=== PATIENT | female | born 1995 | race Caucasian/White ===

== ENCOUNTER 2016-11-07 20:54 | Emergency (ER) | payer MEDICAID ==
[~2016-11-07] VITALS: Ht 154.9 cm; Wt 98.0 kg
[~2016-11-07 20:54] MED LIST: FS300 PO; IBUP-1008 PO; MULT-1116 PO
[2016-11-08 01:46] VITALS: BP 128/65
== END 2016-11-08 01:48 | disposition home or self-care (01) ==
LOC: ER 23:25
DX: R05 Cough (principal); J45.909 Unspecified asthma, uncomplicated; Z90.49 Acquired absence of other specified parts of digestive tract; Z98.890 Other specified postprocedural states
CPT/HCPCS: 71010; 81025; 99283

== ENCOUNTER 2017-06-06 12:46 | Emergency (ER) | payer OTHER, MEDICAID ==
[~2017-06-06] VITALS: Ht 162.6 cm; Wt 109.0 kg
[~2017-06-06 12:46] MED LIST changes: +FERR325T23 PO; -FS300 PO
[2017-06-06] MEDS ORDERED: FAMOTIDINE 20MG/2ML VIAL IV STA (18:27)
[2017-06-06] MEDS ORDERED: MAGNESIUM/ALUMINUM HYDROXIDE/SIMETHICONE 30ML UDC PO STA (18:27)
[2017-06-06] MEDS ORDERED: SODIUM CHLORIDE 0.9% 1,000 ML IV ONE ×2 (18:27→20:00)
[2017-06-06] MEDS ORDERED: ONDANSETRON HCL 4MG/2ML VIAL IV STA (18:27)
[2017-06-06 19:05] LABS: BASOPHILS % 0.2 % (0.0-2.0); EOSINOPHILS % 0.1 % (0.0-5.0); HEMATOCRIT. 36.3 % (36.0-48.0); HEMOGLOBIN. 12.1 g/dL (12.0-16.0); LYMPHOCYTES % 15.5 % (20.0-50.0); MEAN CORPUSCULAR HEMOGLOBIN 26.4 pg (28.0-32.0); MEAN CORPUSCULAR VOLUME 79.4 fL (81.0-99.0); MEAN PLATELET VOLUME 9.6 fl (7.4-10.4); MONOCYTES % 8.7 % (2.0-8.0); NEUTROPHILS % 75.5 % (40.0-76.0); PLATELET 236 x1000/uL (130-400); RED BLOOD CELL COUNT 4.58 mill/uL (4.2-5.4); RED CELL DISTRIBUTION WIDTH 13.3 % (11.6-14.6)
[2017-06-06 19:18] LABS: CARBON DIOXIDE 26 mEq/L (21-32); CHLORIDE 104 mEq/L (98-107)
[2017-06-06 19:46] LABS: CLARITY URINE CLEAR (CLEAR); COLOR URINE YELLOW (YELLOW); GLUCOSE URINE NEGATIVE (NEGATIVE); KETONES URINE NEGATIVE (NEGATIVE); LEUKOCYTE ESTERASE URINE NEGATIVE (NEGATIVE); NITRITE URINE NEGATIVE (NEGATIVE); OCCULT BLOOD URINE NEGATIVE (NEGATIVE); PROTEIN URINE NEGATIVE (NEGATIVE)
[2017-06-06 22:33] VITALS: BP 113/57
== END 2017-06-06 22:40 | disposition home or self-care (01) ==
LOC: ER 12:46
DX: K29.70 Gastritis, unspecified, without bleeding (principal); J45.909 Unspecified asthma, uncomplicated; Z90.49 Acquired absence of other specified parts of digestive tract
CPT/HCPCS: 36415; 80053; 81003; 81025; 83690; 85025; 96361; 96374; 96375; 99285; J2405; J3490; J7030

== ENCOUNTER 2017-10-14 10:30 | Emergency (ER) | payer MEDICAID, OTHER ==
[~2017-10-14] VITALS: Ht 154.9 cm; Wt 112.0 kg
[2017-10-14 10:38] VITALS: BP 126/83
[2017-10-14 14:40] LABS: CLARITY URINE CLOUDY (CLEAR); COLOR URINE YELLOW (YELLOW); KETONES URINE NEGATIVE (NEGATIVE); LEUKOCYTE ESTERASE URINE 1+ (NEGATIVE); NITRITE URINE NEGATIVE (NEGATIVE); OCCULT BLOOD URINE NEGATIVE (NEGATIVE); PROTEIN URINE NEGATIVE (NEGATIVE); UROBILINOGEN URINE 0.2 E.U./dL (0.2-1.0)
== END 2017-10-14 14:30 | disposition left against medical advice (07) ==
LOC: ER 10:33
DX: R10.13 Epigastric pain (principal); Z53.21 Procedure and treatment not carried out due to patient leaving prior to being seen by health care provider
CPT/HCPCS: 81003; 81025

== ENCOUNTER 2017-11-08 10:24 | Emergency (ER) | payer MEDICAID ==
[~2017-11-08] VITALS: Ht 157.5 cm; Wt 114.0 kg
[2017-11-08 14:11] LABS: CLARITY URINE CLOUDY (CLEAR); COLOR URINE YELLOW (YELLOW); KETONES URINE NEGATIVE (NEGATIVE); LEUKOCYTE ESTERASE URINE 1+ (NEGATIVE); NITRITE URINE NEGATIVE (NEGATIVE); OCCULT BLOOD URINE NEGATIVE (NEGATIVE); PROTEIN URINE NEGATIVE (NEGATIVE); UROBILINOGEN URINE 0.2 E.U./dL (0.2-1.0)
[2017-11-08] MEDS ORDERED: NITROFURANTOIN 100MG M/M CAPSULE PO ONE (18:00)
[2017-11-08 18:31] LABS: BASOPHILS % 0.3 % (0.0-2.0); EOSINOPHILS % 1.1 % (0.0-5.0); HEMOGLOBIN. 11.1 g/dL (12.0-16.0); LYMPHOCYTES % 25.9 % (20.0-50.0); MEAN CORPUSCULAR HEMOGLOBIN 27.1 pg (28.0-32.0); MEAN CORPUSCULAR VOLUME 80.2 fL (81.0-99.0); MEAN PLATELET VOLUME 9.2 fl (7.4-10.4); MONOCYTES % 7.8 % (2.0-8.0); NEUTROPHILS % 64.9 % (40.0-76.0); PLATELET 261 x1000/uL (130-400); RED BLOOD CELL COUNT 4.12 mill/uL (4.2-5.4); RED CELL DISTRIBUTION WIDTH 13.3 % (11.6-14.6)
[2017-11-08 18:41] LABS: CHLORIDE 105 mEq/L (98-107)
[2017-11-08 18:55] LABS: *AMPHETAMINES SCREEN URINE NEGATIVE (NEGATIVE); *BARBITURATES SCREEN URINE NEGATIVE (NEGATIVE); *BENZODIAZEPINES SCREEN URINE NEGATIVE (NEGATIVE); *COCAINE SCREEN URINE NEGATIVE (NEGATIVE); METHADONE URINE SCREEN NEGATIVE (NEGATIVE); OPIATES URINE SCREEN NEGATIVE (NEGATIVE)
[2017-11-08 18:56] LABS: CANNABINOID URINE SCREEN NEGATIVE (NEGATIVE); PHENCYCLIDINE URINE SCREEN NEGATIVE (NEGATIVE)
[2017-11-08 19:04] LABS: B-HCG QUANTITATIVE 30520 mIU/mL (<3)
[2017-11-09] MEDS ORDERED: NITROFURANTOIN 100MG M/M CAPSULE PO ONE (00:30)
[2017-11-09 00:35] VITALS: BP 120/69
== END 2017-11-09 00:45 | disposition home or self-care (01) ==
LOC: ER 13:28 → CANBEDREQ 23:37 → ER 11-09 00:45
DX: O26.831 Pregnancy related renal disease, first trimester (principal); N17.0 Acute kidney failure with tubular necrosis; O99.281 Endocrine, nutritional and metabolic diseases complicating pregnancy, first trimester; R73.9 Hyperglycemia, unspecified; E86.0 Dehydration; O99.011 Anemia complicating pregnancy, first trimester; E88.09 Other disorders of plasma-protein metabolism, not elsewhere classified; O23.41 Unspecified infection of urinary tract in pregnancy, first trimester; N39.0 Urinary tract infection, site not specified; O21.9 Vomiting of pregnancy, unspecified; D50.9 Iron deficiency anemia, unspecified; O99.511 Diseases of the respiratory system complicating pregnancy, first trimester; J45.909 Unspecified asthma, uncomplicated; O99.211 Obesity complicating pregnancy, first trimester; E66.9 Obesity, unspecified; O26.891 Other specified pregnancy related conditions, first trimester; G62.9 Polyneuropathy, unspecified; Z90.49 Acquired absence of other specified parts of digestive tract; Z98.890 Other specified postprocedural states; Z3A.01 Less than 8 weeks gestation of pregnancy
CPT/HCPCS: 36415; 76801; 80053; 80305; 81003; 81025; 83036; 84702; 85025; 93005; 99285

== ENCOUNTER 2018-03-27 20:23 | Observation (INO) | payer MEDICAID ==
[~2018-03-27] VITALS: Ht 157.5 cm; Wt 109.8 kg
[2018-03-27] MEDS ORDERED: PREN-55 PO (21:36)
== END 2018-03-27 21:50 | disposition home or self-care (01) ==
LOC: L&D 20:23
PROVIDERS: ADMIT Obstetrics & Gynecology; ATTEND Obstetrics & Gynecology
DX: O99.89 Other specified diseases and conditions complicating pregnancy, childbirth and the puerperium (principal); M54.5 Low back pain; O12.02 Gestational edema, second trimester; Z3A.27 27 weeks gestation of pregnancy
CPT/HCPCS: G0378

== ENCOUNTER 2018-04-02 08:33 | Emergency (ER) | payer MEDICAID, OTHER ==
[~2018-04-02] VITALS: Ht 157.5 cm; Wt 122.0 kg
[~2018-04-02 08:33] MED LIST changes: -FERR325T23 PO; -IBUP-1008 PO; -MULT-1116 PO; +PREN-55 PO
[2018-04-02 11:29] LABS: BASOPHILS % 0.1 % (0.0-2.0); EOSINOPHILS % 0.8 % (0.0-5.0); HEMATOCRIT. 31.6 % (36.0-48.0); HEMOGLOBIN. 10.7 g/dL (12.0-16.0); LYMPHOCYTES % 24.5 % (20.0-50.0); MEAN CORPUSCULAR HEMOGLOBIN 27.9 pg (28.0-32.0); MEAN CORPUSCULAR VOLUME 82.6 fL (81.0-99.0); MEAN PLATELET VOLUME 9.5 fl (7.4-10.4); NEUTROPHILS % 68.6 % (40.0-76.0); PLATELET 217 x1000/uL (130-400); RED BLOOD CELL COUNT 3.83 mill/uL (4.2-5.4); RED CELL DISTRIBUTION WIDTH 13.2 % (11.6-14.6)
[2018-04-02 11:39] LABS: CHLORIDE 107 mEq/L (98-107)
[2018-04-02 12:25] LABS: CLARITY URINE TURBID (CLEAR); COLOR URINE DARK YELLOW (YELLOW); KETONES URINE NEGATIVE (NEGATIVE); LEUKOCYTE ESTERASE URINE 2+ (NEGATIVE); NITRITE URINE NEGATIVE (NEGATIVE); OCCULT BLOOD URINE 2+ (NEGATIVE); PH URINE 5.5 (4.5-8.0); PROTEIN URINE TRACE (NEGATIVE); SPECIFIC GRAVITY URINE 1.026 (1.005-1.030)
[2018-04-02 12:40] VITALS: BP 120/74
== END 2018-04-02 12:48 | disposition home or self-care (01) ==
LOC: ER 08:33
DX: O23.42 Unspecified infection of urinary tract in pregnancy, second trimester (principal); R60.0 Localized edema; O26.892 Other specified pregnancy related conditions, second trimester; O99.012 Anemia complicating pregnancy, second trimester; J45.909 Unspecified asthma, uncomplicated; Z3A.24 24 weeks gestation of pregnancy; Z90.49 Acquired absence of other specified parts of digestive tract; Z98.890 Other specified postprocedural states
CPT/HCPCS: 36415; 80053; 81003; 85025; 87086; 93971; 99285; Z7610

== ENCOUNTER 2018-04-24 04:02 | Observation (INO) | payer OTHER ==
[~2018-04-24] VITALS: Ht 154.9 cm; Wt 108.9 kg
[2018-04-24 05:37] LABS: CLARITY URINE TURBID (CLEAR); COLOR URINE YELLOW (YELLOW); KETONES URINE NEGATIVE (NEGATIVE); LEUKOCYTE ESTERASE URINE 2+ (NEGATIVE); NITRITE URINE NEGATIVE (NEGATIVE); OCCULT BLOOD URINE NEGATIVE (NEGATIVE); PH URINE 5.5 (4.5-8.0); PROTEIN URINE NEGATIVE (NEGATIVE); SPECIFIC GRAVITY URINE 1.025 (1.005-1.030)
[2018-04-24] MEDS ORDERED: LACTATED RINGERS 1,000 ML IV SCH (06:30)
[2018-04-24] MEDS ORDERED: ACETAMINOPHEN 500MG TABLET PO ONE ×2 (06:30→06:45)
[2018-04-24] MEDS ORDERED: CEFAZOLIN 2000MG in DEXTROSE 5% WATER 100ML IV NR (06:30)
[2018-04-24] MEDS ORDERED: CEFAZOLIN SODIUM 1000MG/VIAL IV ONE (06:30)
[2018-04-24] MEDS ORDERED: NITROFURANTOIN 100MG M/M CAPSULE PO ONE (10:00)
[2018-04-24 10:06] LABS: BASOPHILS % 0.2 % (0.0-2.0); HEMATOCRIT. 32.6 % (36.0-48.0); HEMOGLOBIN. 10.9 g/dL (12.0-16.0); LYMPHOCYTES % 25.1 % (20.0-50.0); MEAN CORPUSCULAR HEMOGLOBIN 28.3 pg (28.0-32.0); MEAN CORPUSCULAR VOLUME 84.2 fL (81.0-99.0); MEAN PLATELET VOLUME 10.1 fl (7.4-10.4); MONOCYTES % 5.7 % (2.0-8.0); PLATELET 225 x1000/uL (130-400); RED BLOOD CELL COUNT 3.86 mill/uL (4.2-5.4); RED CELL DISTRIBUTION WIDTH 12.9 % (11.6-14.6)
== END 2018-04-24 10:40 | disposition home or self-care (01) ==
LOC: L&D 04:02
PROVIDERS: ADMIT Obstetrics & Gynecology; ATTEND Obstetrics & Gynecology
DX: O26.893 Other specified pregnancy related conditions, third trimester (principal); R10.30 Lower abdominal pain, unspecified; Z3A.31 31 weeks gestation of pregnancy
CPT/HCPCS: 36415; 76770; 76805; 76818; 81003; 85025; 87086; G0378; J0690; J7120; J7060

== ENCOUNTER 2018-05-29 12:24 | Observation (INO) | payer MEDICAID ==
[~2018-05-29] VITALS: Ht 154.9 cm; Wt 108.9 kg
[2018-05-29] MEDS ORDERED: ONDANSETRON HCL 4MG/2ML INJ IV NR (13:15)
[2018-05-29] MEDS ORDERED: ACETAMINOPHEN 500MG TABLET PO NR (13:15)
[2018-05-29] MEDS ORDERED: DEXT 5%/LACTATED RINGERS 1,000 ML IV SCH (13:15)
[2018-05-29 14:14] LABS: CHLORIDE 106 mEq/L (98-107)
[2018-05-30] MEDS ORDERED: DEXT 5%/LR + PITOCIN 20UNITS/L 0 ML IV ONE (07:31)
== END 2018-05-29 16:26 | disposition home or self-care (01) ==
LOC: L&D 12:24
PROVIDERS: ADMIT Obstetrics & Gynecology; ATTEND Obstetrics & Gynecology
DX: O21.2 Late vomiting of pregnancy (principal); O26.893 Other specified pregnancy related conditions, third trimester; R19.7 Diarrhea, unspecified; R10.9 Unspecified abdominal pain; Z3A.36 36 weeks gestation of pregnancy
CPT/HCPCS: 36415; 80053; 96374; 99281; G0378; J2405; J7120; 96360; 96361; J2590; J7121

== ENCOUNTER 2018-06-16 06:15 | Inpatient (IN) | payer MEDICAID ==
[~2018-06-16] VITALS: Ht 154.9 cm; Wt 108.9 kg
[2018-06-16] MEDS ORDERED: LACTATED RINGERS 1,000 ML IV SCH (07:20)
[2018-06-16] MEDS ORDERED: DEXT 5%/LR + PITOCIN 20UNITS/L 1,000 ML IV SCH ×2 (07:20→18:13)
[2018-06-16] MEDS ORDERED: NALOXONE HCL 0.4 MG/ML 1ML VIAL IM PRN (07:30)
[2018-06-16] MEDS ORDERED: METHYLERGONOVINE MALEATE 0.2 MG/ML IM PRN (07:30)
[2018-06-16] MEDS ORDERED: CARBOPROST TROMETHAMINE 250 MCG/ML AMPUL IM PRN (07:30)
[2018-06-16 08:40] LABS: BASOPHILS % 0.4 % (0.0-2.0); EOSINOPHILS % 0.5 % (0.0-5.0); HEMATOCRIT. 33.5 % (36.0-48.0); HEMOGLOBIN. 11.4 g/dL (12.0-16.0); LYMPHOCYTES % 24.7 % (20.0-50.0); MEAN CORPUSCULAR HEMOGLOBIN 28.2 pg (28.0-32.0); MEAN CORPUSCULAR VOLUME 82.7 fL (81.0-99.0); MEAN PLATELET VOLUME 10.4 fl (7.4-10.4); MONOCYTES % 6.1 % (2.0-8.0); NEUTROPHILS % 68.3 % (40.0-76.0); PLATELET 223 x1000/uL (130-400); RED BLOOD CELL COUNT 4.06 mill/uL (4.2-5.4); RED CELL DISTRIBUTION WIDTH 12.5 % (11.6-14.6)
[2018-06-16 08:43] LABS: CLARITY URINE CLOUDY (CLEAR); COLOR URINE YELLOW (YELLOW); KETONES URINE NEGATIVE (NEGATIVE); LEUKOCYTE ESTERASE URINE 2+ (NEGATIVE); NITRITE URINE NEGATIVE (NEGATIVE); OCCULT BLOOD URINE NEGATIVE (NEGATIVE); PROTEIN URINE NEGATIVE (NEGATIVE); UROBILINOGEN URINE 0.2 E.U./dL (0.2-1.0)
[2018-06-16 09:06] LABS: INR 0.9; PARTIAL THROMBOPLASTIN TIME 27.5 sec (23.4-31.0); PROTHROMBIN TIME 9.4 sec (9.1-11.1)
[2018-06-16 09:53] LABS: METHADONE URINE SCREEN NEGATIVE (NEGATIVE); OPIATES URINE SCREEN NEGATIVE (NEGATIVE)
[2018-06-16 10:04] LABS: *AMPHETAMINES SCREEN URINE NEGATIVE (NEGATIVE); *BARBITURATES SCREEN URINE NEGATIVE (NEGATIVE); *BENZODIAZEPINES SCREEN URINE NEGATIVE (NEGATIVE); *COCAINE SCREEN URINE NEGATIVE (NEGATIVE); CANNABINOID URINE SCREEN NEGATIVE (NEGATIVE); PHENCYCLIDINE URINE SCREEN NEGATIVE (NEGATIVE)
[2018-06-16 11:08] LABS: HEPATITIS B SURFACE ANTIGEN NEGATIVE
[2018-06-16] MEDS ORDERED: MORPHINE SULFATE/PF 1MG/ML 10ML AMP ONE (17:12)
[2018-06-16] MEDS ORDERED: FENTANYL CITRATE/PF 50MCG/ML 2ML VIAL ONE (17:12)
[2018-06-16] MEDS ORDERED: ONDANSETRON HCL 4MG/2ML INJ ONE (17:17)
[2018-06-16] MEDS ORDERED: CEFAZOLIN SODIUM 1000MG/VIAL ONE (17:17)
[2018-06-16] MEDS ORDERED: IBUPROFEN 400MG TABLET PO PRN (18:15)
[2018-06-16] MEDS ORDERED: ACETAMINOPHEN WITH CODEINE 300/30MG TABLET PO PRN (18:15)
[2018-06-16] MEDS ORDERED: HYDROMORPHONE HCL/PF 2MG/ML CPJ IM PRN (18:15)
[2018-06-16] MEDS ORDERED: RHO(D) IMMUNE GLOBULIN 300 MCG/SYR IM PRN (18:15)
[2018-06-16 21:00] VITALS: BP 113/58
[2018-06-16 21:30] VITALS: BP 104/61
[2018-06-16 22:00] VITALS: BP 101/59
[2018-06-16] MEDS ORDERED: DIPHENHYDRAMINE 50MG/ML VIAL IV PRN (22:15)
[2018-06-16] MEDS ORDERED: ONDANSETRON HCL 4MG/2ML INJ IV PRN (22:15)
[2018-06-16] MEDS ORDERED: BUTORPHANOL TARTRATE 2 MG/ML VIAL IV PRN (22:15)
[2018-06-16] MEDS ORDERED: NALOXONE HCL 0.4 MG/ML 1ML VIAL IV PRN (22:15)
[2018-06-16] MEDS ORDERED: KETOROLAC 30MG/ML VIAL IV PRN (22:15)
[2018-06-17] VITALS: BP 106/60
[2018-06-17 04:00] VITALS: BP 110/55
[2018-06-17 07:44] LABS: BASOPHILS % 0.2 % (0.0-2.0); EOSINOPHILS % 0.5 % (0.0-5.0); HEMOGLOBIN. 10.2 g/dL (12.0-16.0); LYMPHOCYTES % 22.2 % (20.0-50.0); MEAN CORPUSCULAR HEMOGLOBIN 28.2 pg (28.0-32.0); MEAN CORPUSCULAR VOLUME 83.1 fL (81.0-99.0); MEAN PLATELET VOLUME 10.3 fl (7.4-10.4); MONOCYTES % 7.2 % (2.0-8.0); NEUTROPHILS % 69.9 % (40.0-76.0); PLATELET 185 x1000/uL (130-400); RED BLOOD CELL COUNT 3.61 mill/uL (4.2-5.4); RED CELL DISTRIBUTION WIDTH 12.1 % (11.6-14.6)
[2018-06-17 08:30] VITALS: BP 106/58
[2018-06-17 11:15] VITALS: BP 102/63
[2018-06-17 14:55] VITALS: BP 104/66
[2018-06-17] MEDS: IBUPROFEN 800MG TABLET PO PRN (18:36)
[2018-06-17 22:00] VITALS: BP 99/55
[2018-06-18] MEDS: IBUPROFEN 800MG TABLET PO PRN (03:32)
[2018-06-18 06:00] VITALS: BP 104/63
[2018-06-18 07:58] VITALS: BP 116/81
[2018-06-18 12:57] VITALS: BP 116/81
[2018-06-18] MEDS ORDERED: GUAIFENESIN-DM 200MG-20MG/10ML UDC PO PRN (13:00)
== END 2018-06-18 17:30 | disposition home or self-care (01) | DRG 540 ==
LOC: L&D 06:15 → OBSVTOIN 06:15 → L&D 08:29 → 7EST PP/OB 20:59
PROVIDERS: ADMIT Obstetrics & Gynecology; ATTEND Obstetrics & Gynecology
PROC: 10D00Z1 Extraction of Products of Conception, Low, Open Approach (ICD-10-PCS; principal; 2018-06-16 18:25)
DX: O34.211 Maternal care for low transverse scar from previous cesarean delivery (principal); Z68.42 Body mass index [BMI] 45.0-49.9, adult; O99.214 Obesity complicating childbirth; D64.9 Anemia, unspecified; E66.9 Obesity, unspecified; O99.02 Anemia complicating childbirth; O99.52 Diseases of the respiratory system complicating childbirth; J45.909 Unspecified asthma, uncomplicated; Z37.0 Single live birth; Z3A.38 38 weeks gestation of pregnancy
CPT/HCPCS: 36415; 80305; 86592; 86703; 86762; 86850; 86900; 87340; 88307; G0378; J0690; J2274; J2405; J2590; J3010; J7120; A4315

== ENCOUNTER 2019-08-06 04:05 | Emergency (ER) | payer MEDICAID ==
[2019-08-06 11:07] LABS: CLARITY URINE TURBID (CLEAR); COLOR URINE RED (YELLOW); KETONES URINE NEGATIVE (NEGATIVE); LEUKOCYTE ESTERASE URINE 2+ (NEGATIVE); NITRITE URINE NEGATIVE (NEGATIVE); OCCULT BLOOD URINE 3+ (NEGATIVE); PROTEIN URINE 3+ (NEGATIVE); SPECIFIC GRAVITY URINE 1.023 (1.005-1.030); UROBILINOGEN URINE 0.2 E.U./dL (0.2-1.0)
[2019-08-06 11:22] LABS: HEMATOCRIT 31.5 % (36.0-48.0); HEMOGLOBIN 10.5 g/dL (12.0-16.0); MEAN CORPUSCULAR HEMOGLOBIN 26.4 pg (28.0-32.0); MEAN CORPUSCULAR VOLUME 79.6 fL (81.0-99.0); PLATELET 269 x1000/uL (130-400); RED BLOOD CELL COUNT 3.96 mill/uL (4.2-5.4); RED CELL DISTRIBUTION WIDTH 14.4 % (11.6-14.6)
[2019-08-06 11:44] LABS: HCG SCREEN POSITIVE
[2019-08-06] MEDS ORDERED: CEFTRIAXONE SODIUM 1 G/VIAL IM SCH (11:45)
[2019-08-06] MEDS ORDERED: LIDOCAINE HCL 1% 20ML VIAL (Pyxis) INJ INFIL ONE (12:15)
[2019-08-06 13:16] VITALS: BP 121/59
== END 2019-08-06 13:20 | disposition home or self-care (01) ==
LOC: ER 04:05
DX: O23.41 Unspecified infection of urinary tract in pregnancy, first trimester (principal); O99.511 Diseases of the respiratory system complicating pregnancy, first trimester; J45.909 Unspecified asthma, uncomplicated; Z90.49 Acquired absence of other specified parts of digestive tract; Z3A.08 8 weeks gestation of pregnancy
CPT/HCPCS: 36415; 76801; 76817; 81003; 84703; 85027; 86850; 86900; 86901; 96372; 99284; J0696; J3490

== ENCOUNTER 2019-08-26 11:51 | Emergency (ER) | payer MEDICAID ==
[~2019-08-26] VITALS: Ht 154.9 cm; Wt 114.0 kg
[2019-08-26] MEDS ORDERED: ONDANSETRON HCL 4MG/2ML INJ IV STA (21:46)
[2019-08-26] MEDS ORDERED: SODIUM CHLORIDE 0.9% 1,000 ML IV ONE (21:46)
[2019-08-26 23:10] LABS: BASOPHILS % 1.4 % (0.0-2.0); HEMATOCRIT. 33.7 % (36.0-48.0); HEMOGLOBIN. 11.3 g/dL (12.0-16.0); LYMPHOCYTES % 29.9 % (20.0-50.0); MEAN CORPUSCULAR HEMOGLOBIN 26.8 pg (28.0-32.0); MEAN PLATELET VOLUME 10.2 fl (7.4-10.4); MONOCYTES % 7.3 % (2.0-8.0); NEUTROPHILS % 59.4 % (40.0-76.0); PLATELET 291 x1000/uL (130-400); RED BLOOD CELL COUNT 4.21 mill/uL (4.2-5.4)
[2019-08-26 23:15] LABS: CHLORIDE 105 mEq/L (98-107); PROTHROMBIN TIME 9.9 sec (9.6-11.0)
[2019-08-26 23:32] LABS: CLARITY URINE TURBID (CLEAR); COLOR URINE YELLOW (YELLOW); KETONES URINE NEGATIVE (NEGATIVE); LEUKOCYTE ESTERASE URINE 1+ (NEGATIVE); NITRITE URINE NEGATIVE (NEGATIVE); OCCULT BLOOD URINE NEGATIVE (NEGATIVE); PH URINE 5.5 (4.5-8.0); PROTEIN URINE TRACE (NEGATIVE); SPECIFIC GRAVITY URINE 1.037 (1.005-1.030)
[2019-08-26 23:42] LABS: B-HCG QUANTITATIVE 48011 mIU/mL (<3)
[2019-08-27] MEDS ORDERED: CEFTRIAXONE 1 G PREMIX 50 ML IV ONE (00:30)
[2019-08-27 02:11] VITALS: BP 111/71
== END 2019-08-27 02:11 | disposition home or self-care (01) ==
LOC: ER 11:51
DX: O23.11 Infections of bladder in pregnancy, first trimester (principal); K29.00 Acute gastritis without bleeding; D64.9 Anemia, unspecified; J45.909 Unspecified asthma, uncomplicated; Z90.49 Acquired absence of other specified parts of digestive tract; Z98.890 Other specified postprocedural states; Z3A.11 11 weeks gestation of pregnancy; Z87.19 Personal history of other diseases of the digestive system
CPT/HCPCS: 36415; 76705; 76801; 80053; 81003; 83690; 84702; 85025; 85610; 86850; 86900; 86901; 87086; 96361; 96365; 96375; 99284; J0696; J2405; J7030; Z7610

== ENCOUNTER 2019-10-17 20:06 | Emergency (ER) | payer MEDICAID ==
[~2019-10-17] VITALS: Ht 154.9 cm; Wt 111.0 kg
[2019-10-17] MEDS ORDERED: ONDANSETRON HCL 4MG/2ML INJ IV STA (22:21)
[2019-10-17] MEDS ORDERED: SODIUM CHLORIDE 0.9% 1,000 ML IV ONE (22:21)
[2019-10-17] MEDS ORDERED: ACETAMINOPHEN 325MG TABLET PO STA (22:21)
[2019-10-17 22:58] LABS: BASOPHILS % 0.2 % (0.0-2.0); HEMATOCRIT. 30.5 % (36.0-48.0); HEMOGLOBIN. 10.3 g/dL (12.0-16.0); LYMPHOCYTES % 27.8 % (20.0-50.0); MEAN CORPUSCULAR HEMOGLOBIN 27.6 pg (28.0-32.0); MEAN CORPUSCULAR VOLUME 81.4 fL (81.0-99.0); MEAN PLATELET VOLUME 9.5 fl (7.4-10.4); MONOCYTES % 7.3 % (2.0-8.0); NEUTROPHILS % 63.7 % (40.0-76.0); PLATELET 225 x1000/uL (130-400); RED BLOOD CELL COUNT 3.74 mill/uL (4.2-5.4); RED CELL DISTRIBUTION WIDTH 13.9 % (11.6-14.6)
[2019-10-17 23:05] LABS: CHLORIDE 106 mEq/L (98-107)
[2019-10-18 00:11] VITALS: BP 117/53
== END 2019-10-18 00:13 | disposition home or self-care (01) ==
LOC: ER 20:06
DX: O26.892 Other specified pregnancy related conditions, second trimester (principal); O99.512 Diseases of the respiratory system complicating pregnancy, second trimester; R10.13 Epigastric pain; Z3A.18 18 weeks gestation of pregnancy; Z87.440 Personal history of urinary (tract) infections; Z98.890 Other specified postprocedural states; Z90.49 Acquired absence of other specified parts of digestive tract
CPT/HCPCS: 36415; 80053; 83690; 85025; 96361; 96374; 99283; J2405; J7030

== ENCOUNTER 2019-12-12 15:19 | Observation (INO) | payer MEDICAID ==
[~2019-12-12] VITALS: Ht 154.9 cm; Wt 104.3 kg
[2019-12-12 17:14] LABS: CLARITY URINE CLOUDY (CLEAR); COLOR URINE DARK YELLOW (YELLOW); KETONES URINE TRACE (NEGATIVE); LEUKOCYTE ESTERASE URINE 1+ (NEGATIVE); NITRITE URINE NEGATIVE (NEGATIVE); OCCULT BLOOD URINE NEGATIVE (NEGATIVE); PROTEIN URINE TRACE (NEGATIVE)
[2019-12-12] MEDS ORDERED: CEFAZOLIN 2,000 MG in DEXT 5% WATER 100 ML IV SCH (18:00)
== END 2019-12-12 19:03 | disposition home or self-care (01) ==
LOC: 8 EST LDRP 15:19
PROVIDERS: ADMIT Obstetrics & Gynecology; ATTEND Obstetrics & Gynecology
DX: O42.912 Preterm premature rupture of membranes, unspecified as to length of time between rupture and onset of labor, second trimester (principal); O26.892 Other specified pregnancy related conditions, second trimester; R10.9 Unspecified abdominal pain; Z3A.26 26 weeks gestation of pregnancy
CPT/HCPCS: 76805; 76818; 76830; 81003; 96365; 99281; G0378; J0690; J7060; 96360

== ENCOUNTER 2020-01-27 06:37 | Observation (INO) | payer MEDICAID ==
[~2020-01-27] VITALS: Ht 154.9 cm; Wt 96.2 kg
[2020-01-27] MEDS ORDERED: LACTATED RINGERS 1,000 ML IV SCH (08:15)
[2020-01-27 08:30] LABS: CLARITY URINE CLEAR (CLEAR); COLOR URINE YELLOW (YELLOW); KETONES URINE NEGATIVE (NEGATIVE); LEUKOCYTE ESTERASE URINE TRACE (NEGATIVE); NITRITE URINE NEGATIVE (NEGATIVE); OCCULT BLOOD URINE NEGATIVE (NEGATIVE); PH URINE 6.5 (4.5-8.0); PROTEIN URINE NEGATIVE (NEGATIVE); SPECIFIC GRAVITY URINE 1.006 (1.005-1.030); UROBILINOGEN URINE 0.2 E.U./dL (0.2-1.0)
[2020-01-27] MEDS ORDERED: CEFAZOLIN 2,000 MG in DEXT 5% WATER 100 ML IV SCH (10:30)
== END 2020-01-27 11:30 | disposition home or self-care (01) ==
LOC: 8 EST LDRP 06:37
PROVIDERS: ADMIT Obstetrics & Gynecology; ATTEND Obstetrics & Gynecology
DX: O62.9 Abnormality of forces of labor, unspecified (principal); O26.893 Other specified pregnancy related conditions, third trimester; R10.2 Pelvic and perineal pain; Z3A.32 32 weeks gestation of pregnancy
CPT/HCPCS: 76805; 76818; 81003; 96361; 96365; 99281; G0378; J0690; J7060; 96360

== ENCOUNTER 2020-02-07 23:28 | Observation (INO) | payer MEDICAID ==
[~2020-02-07] VITALS: Ht 154.9 cm; Wt 109.0 kg
[2020-02-07 23:36] VITALS: BP 138/84
[2020-02-08 02:49] LABS: BASOPHILS % 0.2 % (0.0-2.0); EOSINOPHILS % 0.4 % (0.0-5.0); HEMOGLOBIN. 9.9 g/dL (12.0-16.0); LYMPHOCYTES % 27.2 % (20.0-50.0); MEAN CORPUSCULAR HEMOGLOBIN 26.6 pg (28.0-32.0); MEAN CORPUSCULAR VOLUME 80.4 fL (81.0-99.0); MEAN PLATELET VOLUME 10.4 fl (7.4-10.4); MONOCYTES % 6.7 % (2.0-8.0); NEUTROPHILS % 65.5 % (40.0-76.0); PLATELET 193 x1000/uL (130-400); RED BLOOD CELL COUNT 3.73 mill/uL (4.2-5.4)
[2020-02-08] MEDS ORDERED: PREN-176 PO (02:49)
[2020-02-08] MEDS ORDERED: FERR325T6 PO (02:49)
[2020-02-08] MEDS ORDERED: FOLIC ACID (02:49)
[2020-02-08 02:54] LABS: CHLORIDE 107 mEq/L (98-107)
[2020-02-08 03:08] LABS: INR 0.9; PARTIAL THROMBOPLASTIN TIME 30.3 sec (23.4-31.0); PROTHROMBIN TIME 9.6 sec (9.6-11.0)
[2020-02-08 03:27] LABS: CLARITY URINE CLEAR (CLEAR); COLOR URINE YELLOW (YELLOW); KETONES URINE NEGATIVE (NEGATIVE); LEUKOCYTE ESTERASE URINE 1+ (NEGATIVE); NITRITE URINE NEGATIVE (NEGATIVE); OCCULT BLOOD URINE NEGATIVE (NEGATIVE); PH URINE 5.5 (4.5-8.0); PROTEIN URINE NEGATIVE (NEGATIVE); SPECIFIC GRAVITY URINE 1.019 (1.005-1.030); UROBILINOGEN URINE 0.2 E.U./dL (0.2-1.0)
== END 2020-02-08 05:30 | disposition home or self-care (01) ==
LOC: ER 23:28 → L&D 02-08 01:43
PROVIDERS: ADMIT Obstetrics & Gynecology; ATTEND Obstetrics & Gynecology
DX: U07.1 COVID-19 (principal); O99.513 Diseases of the respiratory system complicating pregnancy, third trimester; J45.909 Unspecified asthma, uncomplicated; R43.9 Unspecified disturbances of smell and taste; R06.02 Shortness of breath; R05 Cough; O26.893 Other specified pregnancy related conditions, third trimester; R10.30 Lower abdominal pain, unspecified; Z3A.37 37 weeks gestation of pregnancy; Z98.891 History of uterine scar from previous surgery
CPT/HCPCS: 36415; 76805; 76818; 80053; 81003; 84550; 85025; 85384; 85610; 85730; 86850; 86900; 86901; 87040; 87086; 93005; 99281; G0378; U0003; 99285

== ENCOUNTER 2020-02-24 19:24 | Emergency (ER) | payer MEDICAID, OTHER ==
[~2020-02-24] VITALS: Ht 154.9 cm; Wt 111.0 kg
[2020-02-24 19:30] VITALS: BP 120/76
== END 2020-02-24 19:56 | disposition home or self-care (01) ==
LOC: ER 19:24
DX: O98.513 Other viral diseases complicating pregnancy, third trimester (principal); U07.1 COVID-19; O99.213 Obesity complicating pregnancy, third trimester; O26.893 Other specified pregnancy related conditions, third trimester; J45.909 Unspecified asthma, uncomplicated; Z3A.38 38 weeks gestation of pregnancy; Z98.890 Other specified postprocedural states
CPT/HCPCS: 99283; C9803; U0003

== ENCOUNTER 2020-02-26 08:54 | Observation (INO) | payer OTHER ==
[2020-02-26] MEDS ORDERED: METOCLOPRAMIDE HCL 10MG/2ML VIAL ONE (09:09)
[2020-02-26] MEDS ORDERED: MORPHINE SULFATE/PF 1MG/ML 10ML AMP ONE (09:09)
[2020-02-26] MEDS ORDERED: CEFAZOLIN SODIUM 1000MG/VIAL ONE (09:09)
[2020-02-26] MEDS ORDERED: EPHEDRINE SULFATE 50MG/ML VIAL ONE (09:09)
[2020-02-26] MEDS ORDERED: FENTANYL CITRATE/PF 50MCG/ML 2ML VIAL ONE (09:09)
[2020-02-26] MEDS ORDERED: GLYCOPYRROLATE 0.2 MG/ML 2ML VIAL ONE (09:09)
[2020-02-26] MEDS ORDERED: PHENYLEPHRINE HCL 10 MG/ML 1ML (IV VIAL) IV ONE (09:09)
[2020-02-26] MEDS ORDERED: OXYTOCIN 10 UNITS/ML 1ML ONE (09:09)
[2020-02-26] MEDS ORDERED: ONDANSETRON HCL 4MG/2ML INJ ONE (09:09)
[2020-02-26] MEDS ORDERED: DIPHENHYDRAMINE 50MG/ML VIAL ONE (09:10)
[2020-02-26] MEDS ORDERED: KETOROLAC 60MG/2ML VIAL IM ONE (09:10)
[2020-02-26] MEDS ORDERED: SODIUM CHLORIDE 0.9% 10ML VIAL ONE (09:22)
[2020-02-26] MEDS ORDERED: CITRIC ACID/SODIUM CITRATE SOLN 30ML UDC PO NR (10:00)
[2020-02-26] MEDS ORDERED: LACTATED RINGERS 1,000 ML IV SCH (11:15)
== END 2020-02-26 12:15 | disposition home or self-care (01) ==
LOC: ER 08:54 → L&D 09:16
PROVIDERS: ADMIT Obstetrics & Gynecology; ATTEND Obstetrics & Gynecology
DX: O98.513 Other viral diseases complicating pregnancy, third trimester (principal); U07.1 COVID-19; O82 Encounter for cesarean delivery without indication; O62.9 Abnormality of forces of labor, unspecified; Z3A.37 37 weeks gestation of pregnancy
CPT/HCPCS: 59025; 96360; 99281; G0378; J2370; J2405; J3490; J0690; J1200; J1885; J2274; J2765; J3010

== ENCOUNTER 2020-03-03 23:36 | Inpatient (IN) | payer MEDICAID, OTHER ==
[~2020-03-03] VITALS: Ht 154.9 cm; Wt 112.0 kg
[2020-03-04] MEDS ORDERED: PNV1TABL76 PO (00:54)
[2020-03-04] MEDS ORDERED: FERR325T6 PO (00:54)
[2020-03-04] MEDS ORDERED: DEXT 5%/LR + PITOCIN 20UNITS/L 1,000 ML IV SCH ×2 (01:02→07:56)
[2020-03-04] MEDS ORDERED: NALOXONE HCL 0.4 MG/ML 1ML VIAL IM PRN (01:15)
[2020-03-04] MEDS ORDERED: METHYLERGONOVINE MALEATE 0.2 MG/ML IM PRN (01:15)
[2020-03-04] MEDS: LACTATED RINGERS 1,000 ML IV SCH ×2 (01:35→03:17)
[2020-03-04 02:12] LABS: BASOPHILS % 0.3 % (0.0-2.0); EOSINOPHILS % 0.3 % (0.0-5.0); HEMATOCRIT. 30.2 % (36.0-48.0); HEMOGLOBIN. 10.1 g/dL (12.0-16.0); LYMPHOCYTES % 29.5 % (20.0-50.0); MEAN CORPUSCULAR HEMOGLOBIN 26.7 pg (28.0-32.0); MEAN CORPUSCULAR VOLUME 80.1 fL (81.0-99.0); MEAN PLATELET VOLUME 10.9 fl (7.4-10.4); MONOCYTES % 6.5 % (2.0-8.0); NEUTROPHILS % 63.4 % (40.0-76.0); PLATELET 187 x1000/uL (130-400); RED BLOOD CELL COUNT 3.77 mill/uL (4.2-5.4); RED CELL DISTRIBUTION WIDTH 14.5 % (11.6-14.6)
[2020-03-04 02:13] LABS: CLARITY URINE CLEAR (CLEAR); COLOR URINE YELLOW (YELLOW); KETONES URINE NEGATIVE (NEGATIVE); LEUKOCYTE ESTERASE URINE 2+ (NEGATIVE); NITRITE URINE NEGATIVE (NEGATIVE); OCCULT BLOOD URINE NEGATIVE (NEGATIVE); PH URINE 5.5 (4.5-8.0); PROTEIN URINE TRACE (NEGATIVE); UROBILINOGEN URINE 0.2 E.U./dL (0.2-1.0)
[2020-03-04 02:23] LABS: INR 0.9; PARTIAL THROMBOPLASTIN TIME 25.7 sec (23.4-31.0); PROTHROMBIN TIME 9.6 sec (9.6-11.0)
[2020-03-04 02:23] LABS: *AMPHETAMINES SCREEN URINE NEGATIVE (NEGATIVE); *BARBITURATES SCREEN URINE NEGATIVE (NEGATIVE); *BENZODIAZEPINES SCREEN URINE NEGATIVE (NEGATIVE); *COCAINE SCREEN URINE NEGATIVE (NEGATIVE); METHADONE URINE SCREEN NEGATIVE (NEGATIVE); OPIATES URINE SCREEN NEGATIVE (NEGATIVE)
[2020-03-04 02:24] LABS: CANNABINOID URINE SCREEN NEGATIVE (NEGATIVE); PHENCYCLIDINE URINE SCREEN NEGATIVE (NEGATIVE)
[2020-03-04 03:55] LABS: HEPATITIS B SURFACE ANTIGEN NEGATIVE
[2020-03-04] MEDS ORDERED: MORPHINE SULFATE/PF 1MG/ML 10ML AMP ONE (05:10)
[2020-03-04] MEDS ORDERED: KETOROLAC 60MG/2ML VIAL IM ONE (05:10)
[2020-03-04] MEDS ORDERED: ONDANSETRON HCL 4MG/2ML INJ ONE (05:10)
[2020-03-04] MEDS ORDERED: CEFAZOLIN SODIUM 1000MG/VIAL ONE (05:10)
[2020-03-04] MEDS ORDERED: OXYTOCIN 10 UNITS/ML 1ML ONE (05:10)
[2020-03-04] MEDS ORDERED: GLYCOPYRROLATE 0.2 MG/ML 2ML VIAL ONE (05:10)
[2020-03-04] MEDS ORDERED: DIPHENHYDRAMINE 50MG/ML VIAL ONE (05:10)
[2020-03-04] MEDS ORDERED: PHENYLEPHRINE HCL 10 MG/ML 1ML (IV VIAL) IV ONE (05:10)
[2020-03-04] MEDS ORDERED: FENTANYL CITRATE/PF 50MCG/ML 5ML VIAL ONE (05:10)
[2020-03-04] MEDS ORDERED: EPHEDRINE SULFATE 50MG/ML VIAL ONE (05:10)
[2020-03-04] MEDS ORDERED: CITRIC ACID/SODIUM CITRATE SOLN 30ML UDC PO NR (05:30)
[2020-03-04] MEDS: KETOROLAC 30MG/ML VIAL IV SCH ×2 (07:02→20:55)
[2020-03-04] MEDS ORDERED: BISACODYL 10MG SUPP PR PRN (08:00)
[2020-03-04] MEDS ORDERED: IBUPROFEN 400MG TABLET PO PRN (08:00)
[2020-03-04] MEDS ORDERED: KETOROLAC 30MG/ML VIAL IV PRN (08:00)
[2020-03-04] MEDS ORDERED: RHO(D) IMMUNE GLOBULIN 300 MCG/SYR IM PRN (08:00)
[2020-03-04] MEDS ORDERED: DIPHENHYDRAMINE 50MG/ML VIAL IV PRN (08:15)
[2020-03-04] MEDS ORDERED: BUTORPHANOL TARTRATE 2 MG/ML VIAL IV PRN (08:15)
[2020-03-04] MEDS ORDERED: NALOXONE HCL 0.4 MG/ML 1ML VIAL IV PRN (08:15)
[2020-03-04 09:20] VITALS: BP 99/61
[2020-03-04 10:10] VITALS: BP 108/65
[2020-03-04 16:00] VITALS: BP 100/55
[2020-03-04 19:30] VITALS: BP 104/64
[2020-03-04 23:45] VITALS: BP 100/56
[2020-03-05 03:25] VITALS: BP 102/62
[2020-03-05 04:19] VITALS: BP 107/62
[2020-03-05 07:02] VITALS: BP 108/69
[2020-03-05 08:30] VITALS: BP 103/60
[2020-03-05 09:59] LABS: BASOPHILS % 0.2 % (0.0-2.0); EOSINOPHILS % 0.8 % (0.0-5.0); HEMATOCRIT. 26.3 % (36.0-48.0); HEMOGLOBIN. 8.6 g/dL (12.0-16.0); LYMPHOCYTES % 26.1 % (20.0-50.0); MEAN CORPUSCULAR HEMOGLOBIN 26.3 pg (28.0-32.0); MEAN CORPUSCULAR VOLUME 80.3 fL (81.0-99.0); MEAN PLATELET VOLUME 10.5 fl (7.4-10.4); MONOCYTES % 6.1 % (2.0-8.0); NEUTROPHILS % 66.8 % (40.0-76.0); PLATELET 158 x1000/uL (130-400); RED BLOOD CELL COUNT 3.28 mill/uL (4.2-5.4); RED CELL DISTRIBUTION WIDTH 14.6 % (11.6-14.6)
[2020-03-05 16:00] VITALS: BP 113/64
[2020-03-05] MEDS: IBUPROFEN 800MG TABLET PO PRN (16:40)
[2020-03-05 19:30] VITALS: BP 115/61
[2020-03-05] MEDS ORDERED: MULTIVITAMINS,THER W-MINERALS TABLET PO SCH (20:45)
[2020-03-05] MEDS ORDERED: FERROUS SULFATE 325MG TABLET PO SCH (21:00)
[2020-03-06] MEDS: IBUPROFEN 800MG TABLET PO PRN (03:30)
[2020-03-06 04:00] VITALS: BP 137/87
[2020-03-06 07:50] VITALS: BP 121/66
[2020-03-06] MEDS ORDERED: IBUP-2030 MT (08:05)
== END 2020-03-06 10:30 | disposition home or self-care (01) | DRG 540 ==
LOC: OBSVTOIN 23:36 → 8 EST LDRP 23:36 → L&D 23:57
PROVIDERS: ADMIT Obstetrics & Gynecology; ATTEND Obstetrics & Gynecology
PROC: 10D00Z1 Extraction of Products of Conception, Low, Open Approach (ICD-10-PCS; principal; 2020-03-04)
DX: O98.52 Other viral diseases complicating childbirth (principal); U07.1 COVID-19; O34.211 Maternal care for low transverse scar from previous cesarean delivery; D62 Acute posthemorrhagic anemia; E66.9 Obesity, unspecified; O99.62 Diseases of the digestive system complicating childbirth; K66.0 Peritoneal adhesions (postprocedural) (postinfection); O69.81X0 Labor and delivery complicated by cord around neck, without compression, not applicable or unspecified; O99.03 Anemia complicating the puerperium; O99.214 Obesity complicating childbirth; Z37.0 Single live birth; Z3A.38 38 weeks gestation of pregnancy
CPT/HCPCS: 36415; 80305; 81003; 85025; 86592; 86703; 86762; 86850; 86900; 87340; 88307; J0690; J1200; J1885; J2210; J2274; J2370; J2405; J2590; J3010; J3490; J7120; U0003-CS

== ENCOUNTER 2020-04-23 17:46 | Emergency (ER) | payer MEDICAID, OTHER ==
[~2020-04-23 17:46] MED LIST changes: +FERR325T6 PO; +IBUP-2030 MT; +PNV1TABL76 PO; -PREN-55 PO
== END 2020-04-23 17:59 | disposition left against medical advice (07) ==
LOC: ER 17:51
DX: Z53.21 Procedure and treatment not carried out due to patient leaving prior to being seen by health care provider (principal)

== ENCOUNTER 2020-04-28 08:44 | Emergency (ER) | payer OTHER ==
[~2020-04-28] VITALS: Ht 162.6 cm; Wt 100.0 kg
[2020-04-28 08:50] VITALS: BP 111/77
== END 2020-04-28 09:13 | disposition home or self-care (01) ==
LOC: ER 08:44
DX: Z20.828 Contact with and (suspected) exposure to other viral communicable diseases (principal)
CPT/HCPCS: 87426; 99283

== ENCOUNTER 2020-09-02 22:42 | Emergency (ER) | payer MEDICAID, OTHER ==
[~2020-09-02] VITALS: Ht 154.9 cm; Wt 110.0 kg
[2020-09-02 22:45] VITALS: BP 134/68
[2020-09-02 23:44] LABS: BASOPHILS % 0.4 % (0.0-2.0); EOSINOPHILS % 1.4 % (0.0-5.0); HEMATOCRIT. 28.1 % (36.0-48.0); HEMOGLOBIN. 9.1 g/dL (12.0-16.0); LYMPHOCYTES % 37.1 % (20.0-50.0); MEAN CORPUSCULAR HEMOGLOBIN 23.3 pg (28.0-32.0); MEAN CORPUSCULAR VOLUME 71.6 fL (81.0-99.0); MEAN PLATELET VOLUME 8.8 fl (7.4-10.4); NEUTROPHILS % 53.1 % (40.0-76.0); PLATELET 313 x1000/uL (130-400); RED BLOOD CELL COUNT 3.92 mill/uL (4.2-5.4); RED CELL DISTRIBUTION WIDTH 17.4 % (11.6-14.6)
[2020-09-02 23:47] LABS: CHLORIDE 108 mEq/L (98-107)
== END 2020-09-03 00:16 | disposition home or self-care (01) ==
LOC: ER 22:42
DX: R07.89 Other chest pain (principal); F41.9 Anxiety disorder, unspecified; J45.909 Unspecified asthma, uncomplicated; Z90.49 Acquired absence of other specified parts of digestive tract; Z98.890 Other specified postprocedural states; Z86.19 Personal history of other infectious and parasitic diseases
CPT/HCPCS: 36415; 71045; 80053; 81025; 83880; 84484; 85025; 93005; 99285